=== PATIENT | male | born 1980 | race Caucasian/White ===

== ENCOUNTER → 2019-07-14 | Day surgery (SDC) | payer OTHER ==
[~2019-07-14] VITALS: Ht 185.4 cm; Wt 75.0 kg
[~2019-07-14] MED LIST: BUPR1SUB5 SL; LIDOCAINE 1% MDV 20ML VIAL SQ PRN; LR 1,000 ML IV ONE; ceFAZolin SOD 2 GM in IV 1 EA IV ONE
== END | disposition home or self-care (01) ==
LOC: M SDC 12:05
PROVIDERS: ATTEND Urology
DX: N50.3 Cyst of epididymis (principal); Z53.8 Procedure and treatment not carried out for other reasons

== ENCOUNTER 2019-07-19 07:09 | Day surgery (SDC) | payer OTHER ==
[~2019-07-19] VITALS: Ht 185.4 cm; Wt 75.7 kg
[~2019-07-19 07:09] MED LIST changes: -LIDOCAINE 1% MDV 20ML VIAL SQ PRN
[2019-07-19] MEDS ORDERED: BACITRACIN OINT 30GM As Ordered ONE (07:24)
[2019-07-19] MEDS ORDERED: BUPIVACAINE HCL 0.25% 30 ML VIAL As Ordered ONE (07:24)
[2019-07-19] MEDS ORDERED: LIDOCAINE 1% SDV INJ 30 ML VIAL As Ordered ONE (07:24)
[2019-07-19] MEDS ORDERED: KETAMINE HCL 200 MG/20 ML VIAL As Ordered ONE (08:54)
[2019-07-19] MEDS ORDERED: ACETAMINOPHEN 1000MG 100ML IV BTL (OFIRMEV) (J0131 PER 10MG) As Ordered ONE (09:06)
[2019-07-19] MEDS ORDERED: LIDOCAINE 2% INJ 100 MG/5 ML SDV (FOR ANES.) As Ordered ONE ×2 (10:07→14:16)
[2019-07-19] MEDS ORDERED: KETOROLAC 60 MG/2 ML VIAL (J1885) As Ordered ONE (10:45)
[2019-07-19] MEDS ORDERED: PERCOCET 5MG/325MG TAB PO PRN (11:00)
[2019-07-19] MEDS ORDERED: ONDANSETRON 4MG/2ML VIAL (J2405) IV PRN (11:00)
[2019-07-19] MEDS ORDERED: HYDROMORPHONE HCL 0.5 MG/ 0.5 ML SYRINGE (J1170 PER 1) IV PRN (11:00)
[2019-07-19] MEDS ORDERED: fentaNYL 100 MCG/2 ML INJECTION (J3010) IV PRN (11:00)
[2019-07-19] MEDS ORDERED: LR 1,000 ML IV SCH (11:00)
--- NOTE | 2019-07-19 11:54 | RO ---
DATE OF PROCEDURE: 07/19/2019 PREPROCEDURE DIAGNOSIS: Left epididymal cyst. POSTPROCEDURE DIAGNOSIS: Left epididymal cyst. PROCEDURE: Removal of left epididymal cyst. SURGEON: Nigel Mckeon MD SUPERVISOR WEBBING: None. ANESTHESIA: General. OPERATIVE INDICATION: This is a 38-year-old male who was found to have a large epididymal cyst. He was brought to the operating room today for treatment. DESCRIPTION OF PROCEDURE: The patient was brought to the operating room where general anesthesia was induced. Prophylactic antibiotics were infused. He was then placed in a supine position and then prepped and draped in the usual sterile fashion. At this point, an approximately 4 cm transverse incision was made over the left hemiscrotum. I then dissected down to the scrotal wall layers and then the testicle was delivered out of the tunica vaginalis. Once that was done, it was very clear that the patient had multiple epididymal cysts with one very large one. I then carefully dissected out the cyst away from the testicle and epididymis using a combination of cold scissors and electrocautery. I dissected down to the infundibulum where the cyst was connected to the tail of the epididymis. This was ligated with a 2-0 Vicryl suture. I then transected the cyst away from the epididymis at that point. I finished dissecting all of the cyst from the testicle and epididymis and they were handed off to be sent for pathologic analysis. At this point, any areas of bleeding were controlled with electrocautery. At the end of the procedure, I made sure that there was no damage to the testicle or blood supply or the vas deferens. One satisfied with hemostasis, the testicle was delivered back inside the hemiscrotum in its normal anatomic position. Once that was done, dartos muscle was closed with a running 2-0 Vicryl suture. The skin was closed with interrupted 2-0 chromic sutures. Local anesthetic and then dressings were applied and this marked conclusion of the procedure. The patient was then awakened from anesthesia and transported to the recovery room in stable condition. Estimated blood loss 10 mL. Complications: None. Specimens: Left epididymal cyst. PLAN: The patient will followup in the clinic in a few weeks for postoperative visit. TAMI
[2019-07-19 11:55] VITALS: BP 116/68
[2019-07-19] MEDS ORDERED: MIDAZOLAM INJ 2 MG/2 ML VIAL (J2250) As Ordered ONE (14:14)
[2019-07-19] MEDS ORDERED: dexameTHASONE 4 MG/ML 1ML VIAL (J1100) As Ordered ONE (14:15)
[2019-07-19] MEDS ORDERED: PROPOFOL 200 MG/20 ML VIAL As Ordered ONE (14:15)
[2019-07-19] MEDS ORDERED: ONDANSETRON 4MG/2ML VIAL (J2405) As Ordered ONE (14:15)
[2019-07-19] MEDS ORDERED: KETOROLAC 30 MG/ML VIAL (J1885) IV PRN (17:00)
== END 2019-07-19 12:33 | disposition home or self-care (01) ==
LOC: M SDC 07:09
PROVIDERS: ATTEND Urology
DX: N50.3 Cyst of epididymis (principal); F17.210 Nicotine dependence, cigarettes, uncomplicated; F11.11 Opioid abuse, in remission; Z79.891 Long term (current) use of opiate analgesic
CPT/HCPCS: 54840; 88305; J0131; J0690; J1100; J1885; J2250; J2405